=== PATIENT | female | born 1965 | race Caucasian/White ===

== ENCOUNTER 2018-03-23 18:18 | Observation (INO) | payer OTHER ==
[~2018-03-23 18:18] MED LIST: ISOVUE-370 76%-LOCM 1 ML ONE
[2018-03-23 18:54] VITALS: BMI 24.0
--- NOTE | 2018-03-23 19:14 | PDOC.FPRHP ---
- History of Present Illness Chief Complaint: suprapubic pain and dysuria History of Present Illness: Patient is a 52YOF w/ a PMH significant for recurrent UTI and a h/o kidney stones and pyelonephritis previously who was admitted to the hospital directly from clinic today after presenting there with a CC of persistent low grade fevers, back and suprapubic pain, dysuria, urgency, and nausea for the last 4 weeks. The patient stated that she was seen in [place], [place] urgent care the first of February and prescribed antibiotics which she took for 10 days and finished but says it provided her with one day of relief. She describes the pain as constant aching pain but worse with urination and becomes more sharp in nature in her lower abdomen. It will last up to 2 minutes after she finished urinating. She also endorses some achy bilateral low back pain that was worse on her left side yesterday but worse on her right today. Has been running a low grade fever around 100.0F as well as nausea. Endorses dark urine but no rene blood or odor to her urine. Does endorse urinary urgency and frequency as well. Has tried drinking a lot of water and taken tylenol and azos for symptoms with little relief. ED Course: Direct admit from clinic. - Allergies/Adverse Reactions Allergies Allergy/AdvReac Type Severity Reaction Status Date / Time No Known Allergies Allergy Verified 03/23/18 20:02 - Home Medications Medication Instructions Recorded Confirmed Type Lamotrigine [lamoTRIgine] 100 mg PO DAILY 03/23/18 03/23/18 History Omeprazole 40 mg PO DAILY 03/23/18 03/23/18 History Ondansetron HCl [Zofran] 4 mg PO Q6HR PRN 03/23/18 03/23/18 History Promethazine [Phenergan] 25 mg PO Q6HR PRN 03/23/18 03/23/18 History QUEtiapine Fumarate [SEROquel] 600 mg PO HS 03/23/18 03/23/18 History buPROPion HCl [buPROPion HCl ER] 200 mg PO BID 03/23/18 03/23/18 History hydrOXYzine HCl [Hydroxyzine HCl] 50 mg PO TID 03/23/18 03/23/18 History traZODone HCl [Trazodone HCl] 100 mg PO HS 03/23/18 03/23/18 History - History PMHx: GERD, Bipolar type II, h/o chronic pancreatitis & kidney stones, h/o recurrent UTI (endorses at least 4 this year alone) & pyelonephritis PSHx: hysterectomy & x 3 FHx: Father - HTN & CAD @ <55, from massive [place] Mother - DMII Brother - T-cell lymphoma Social: and lives alone in [place]. Former drug use and tobacco use. Smoked 1ppd for at least 10 years but quit 10 years ago. Former cocaine use but also quit 10 years ago. No EtOH use. - Review of Systems General: reports: fever/chills, weight/appetite/sleep changes, fatigue Eyes: denies: eye pain, vision changes ENT: reports: rhinorrhea, other (sore throat) Respiratory: reports: cough. denies: shortness of breath Cardiovascular: denies: chest pain, edema Gastrointestinal: reports: nausea. denies: vomiting, diarrhea, constipation Genitourinary: reports: dysuria, other (no hematuria but + for urgency and frequency). denies: incontinence Skin: denies: rashes, itching Musculoskeletal: reports: pain, tenderness Neurological: denies: numbness, syncope, weakness Psychological: reports: anxiety, depression - Vital signs BP: 129/70 HR: 91 RR: 20 Tmax: 98.6F Pox: 95% on RA Wt: 53.977 kg - Physical Exam Constitutional: NAD, awake, alert and oriented, well developed HEENT: normocephalic and atraumatic, PERRLA, conjunctiva clear, grossly normal vision, grossly normal hearing, MMM, oropharynx clear Neck: supple, FROM Heart: RRR, normal S1/S2, pulses present, no edema Lungs: CTAB, no respiratory distress, good air movement, no rales/rhonchi, no wheezing Abdomen: soft, bowel sounds present, other (TTP over suprapubic area) Musculoskeletal: normal structure, ROM grossly normal, other (moderate CVA tenderness bilaterally) Neurological: no focal deficit -Neurological: symmetric facial movements Skin: no rash/lesions, good turgor Heme/Lymphatic: no unusual bruising or bleeding, no purpura Psychiatric: normal mood and affect, good judgment and insight, intact recent and remote memory FMR H&P: Results - Labs Result Diagrams: 03/23/18 20:34 03/23/18 20:34 Lab results: UA in clinic: dark orange and cloudy 2+ leukocytes + nitrite 1+ protein hemolyzed trace blood 1+ glucose FMR H&P: A/P - Problem List (1) UTI (urinary tract infection) Current Visit: Yes Status: Suspected Priority: High Qualifiers: Urinary tract infection type: acute pyelonephritis Qualified Code(s): N10 - Acute pyelonephritis (2) Bipolar II disorder Current Visit: Yes Status: Chronic Code(s): F31.81 - BIPOLAR II DISORDER (3) HLD (hyperlipidemia) Current Visit: Yes Status: Chronic Code(s): E78.5 - HYPERLIPIDEMIA, UNSPECIFIED (4) History of pyelonephritis Current Visit: Yes Status: Chronic Code(s): Z87.448 - PERSONAL HISTORY OF OTHER DISEASES OF URINARY SYSTEM (5) History of kidney stones Current Visit: Yes Status: Chronic Code(s): Z87.442 - PERSONAL HISTORY OF URINARY CALCULI (6) History of recurrent UTI (urinary tract infection) Current Visit: Yes Status: Chronic Code(s): Z87.440 - PERSONAL HISTORY OF URINARY (TRACT) INFECTIONS (7) History of chronic pancreatitis Current Visit: Yes Status: Chronic Code(s): Z87.19 - PERSONAL HISTORY OF OTHER DISEASES OF THE DIGESTIVE SYSTEM (8) GERD (gastroesophageal reflux disease) Current Visit: Yes Status: Chronic Code(s): K21.9 - GASTRO-ESOPHAGEAL REFLUX DISEASE WITHOUT ESOPHAGITIS - Plan 52YOF w/ a PMH significant for a h/o recurrent UTIs, kidney stones, and pyelonephritis who was admitted directly from clinic after failing outpatient treatment for a presumed UTI. Dysuria and suprapubic tenderness: - Could be 2/2 a recurrent UTI vs. pyelonephritis vs. a kidney stone. - Will get a urine culture as UA in clinic was suspicious for a UTI w/ nitrite, leuk esterase, and trace blood. - CBC WNLs w/ a WBC of 6.6 and CMP also WNLs. - Will start on 1g of IV rocephin Q24H and get an abd/pelvic CT w/ & w/o contrast to assess for a possible abscess, pyelo, or stone as a potential source of her pain. - Will start on IVFs w/ LR @ 125mL/hr & get strict Is&Os. - Will order PRN tylenol for pain. - Will get a repeat BMP in the AM. HLD: - Aware, will resume home meds. Bipolar disorder type II: - Aware, will resume home meds. GERD: - Aware, will resume home meds. h/o recurrent UTI: - Aware, see above for dysuria. h/o kidney stones: - Aware. h/o chronic pancreatitis: - Aware, CMP WNLs & no abdominal pain on exam other than suprapubic TTP. - Pain not exacerbated with eating but with urination. FMR H&P: Upper Level - Pertinent history 52 yo F with PMHx recurrent UTI presents as a direct admission from clinic for UTI that has failed outpatient therapy. She reports she has had 4 UTI this year , the most recent which was diagnosed at the start of the month. She completed course of abx and reports 1 day of relief before symptoms started up again. Endorses dysuria, hesitancy and now suprapubic, low back and R flank pain. She also endorses h/o nephrolithiasis "years ago" and cannot recall what side it was on or when the last episode was. She endorses "low grade" fevers at home and nausea. - Pertinent findings VSS Gen: awake, alert, oriented HEENT: atraumatic, normocephalic CV: RRR, no murmur noted RESP: CTAB ABD: soft, TTP in suprapubic region BACK: mid-low back and R flank TTP EXT: no edema, pulses 1+ throughout - Plan Date/Time: 03/23/181909 52 yo F with pyelonephritis 1. Pyelonephritis: R flank pain in setting of UTI and sx persistent despite OP therapy. Will repeat UCx and order CT WWO contrast to evaluate for stone and renal abscess. Rocephin and IV fluids. Tylenol PRN pain. Monitor renal function. 2. Bipolar disorder: home meds 3. Chronic pancreatitis: "Cleared" by GI approx 1 year ago. No symptoms at this time. 4. GERD: EGD last year showed mild gastritis. H. pylori negative. Continue PPI 5. Subclinical hypothyroidism: Not on meds. Being followed by PCP, due for lab work. 6. HLD: Home meds 7. H/o nepholithiasis: CT stone protocol as above 8. Normocytic anemia: H/o FOBT positive. Colonoscopy last year incomplete 2/2 fecoliths. Needs ongoing f/u outpatient. I, Jessica Dueñas MD, PGY-3, have evaluated this patient and agree with findings/ plan as outlined by help desk internship resident. Pertinent changes/additions are listed here. Attending Addendum - Attending Addendum Date/Time: 03/24/18 6983 I personally evaluated the patient and discussed the management with Dr. Dueñas and Hair. I agree with and repeated the History, Examination, Assessment and Plan documented above with any addition or exceptions noted below. Need to review records and r/o other secondary causes.
[2018-03-23 20:55] LABS: #Basophils 0.1 thou/uL (0.0-0.2); #Eosinphils 0.2 thou/uL (0.0-0.7); #Lymphocytes 1.7 thou/uL (1.20-3.40); #Monocytes 0.7 thou/uL (0.11-0.59); %Basophils 0.8 % (0.0-1.0); %Eosinophils 2.8 % (0.0-10.0); %Lymphocytes 25.6 % (21.0-51.0); %Monocytes 10.4 % (0.0-10.0); %Neutrophils 60.4 % (42.0-75.0); Hemoglobin 10.5 g/dL (12.0-16.0); Mean Corpuscular HGB CONC 33.1 g/dL (32.0-36.0); Mean Corpuscular Hemoglobin 30.8 pg (27.0-31.0); Mean Corpuscular Volume 93.1 fL (78.0-98.0); Mean Platelet Volume 6.7 fL (7.4-10.4); Platelet Count 367 thou/uL (130-400); RBC Distribution Width 12.3 % (11.5-14.5); Red Blood Cell (RBC) Count 3.41 mill/uL (4.20-5.40); White Blood Cell (WBC) Count 6.6 thou/uL (4.8-10.8)
[2018-03-23] MEDS ORDERED: Ondansetron PF 4 MG/2 ML Vial SLOW IVP PRN (20:57)
[2018-03-23 21:14] LABS: ALT (SGPT) 7 U/L (8-55); AST (SGOT) 16 U/L (5-34); Albumin 3.7 g/dL (3.5-5.0); Alkaline Phosphatase 129 U/L (40-150); Anion Gap 13 mmol/L (10-20); BUN (Urea Nitrogen) 12 mg/dL (7.0-18.7); Bilirubin, Total 0.6 mg/dL (0.2-1.2); Calc. Creatinine Clearance 61 mL/min (70-130); Calcium 9.2 mg/dL (7.8-10.44); Carbon Dioxide 24 mmol/L (22-29); Chloride 105 mmol/L (98-107); Estimated GFR-MDRD 63; Globulin 3.1 g/dL (2.4-3.5); Glucose 86 mg/dL (70-105); Potassium 4.2 mmol/L (3.5-5.1); Protein, Total 6.8 g/dL (6.0-8.3); Sodium 138 mmol/L (136-145)
[2018-03-23] MEDS ORDERED: Promethazine 25 MG TAB PO PRN (22:21)
[2018-03-23] MEDS ORDERED: Ondansetron ODT 4 MG TAB PO PRN (22:21)
[2018-03-23] MEDS: cefTRIAXone\\ROCEPHIN 1 GM in Sodium Chloride 0.9% 100 ML IVPB SCH (22:24)
[2018-03-23] MEDS ORDERED: traZODone HCl 50 MG TAB PO SCH (23:30)
[2018-03-23] MEDS ORDERED: hydrOXYzine 25 MG TAB PO SCH (23:30)
[2018-03-23] MEDS ORDERED: Bupropion 100 MG SR TAB PO SCH (23:30)
[2018-03-23] MEDS: Lactated Ringer's 1,000 ML IV SCH (23:36)
[2018-03-23 23:41] LABS: BHCG - Serum Negative (NEGATIVE); Pregs Control Background? CLEAR/WHITE (CLR/WHITE); Pregs Control Bar Appear? YES (CONTROL BAR)
[2018-03-24] MEDS ORDERED: Benzonatate 100 MG CAP PO PRN (03:17)
[2018-03-24] MEDS: hydrOXYzine 25 MG TAB PO SCH ×3 (08:28→20:10)
[2018-03-24] MEDS: lamoTRIgine 100 MG TAB PO SCH (08:29)
[2018-03-24] MEDS: Bupropion 100 MG SR TAB PO SCH ×2 (08:29→20:10)
--- NOTE | 2018-03-24 08:45 | CT ---
PRELIMINARY REPORT/[facility]/EMERGENTY AFTER-HOURS PROCEDURE CT Abdomen and Pelvis Without and With Intravenous Contrast EXAM DATE/TIME: 03/24/2018 12:08 AM CLINICAL HISTORY: 52 years old, female; Abdominal tenderness and bloating; Pt HX: Suspected pyelonephritis vs renal Sto ne TECHNIQUE: Axial computed tomography images of the abdomen and pelvis without and with intravenous contrast. All CT scans at this facility use at least one of these dose optimization techniques: automated expos ure control; mA and/or kV adjustment per patient size (includes targeted exams where dose is matched to clinical indication); or iterative reconstruction. Coronal reformatted images were created and rev iewed. COMPARISON: No relevant prior studies available. FINDINGS: Lower thorax: Trace pericardial fluid. ABDOMEN: Liver: 12 x 9 mm cyst within the superior liver. Gallbladder and bile ducts: Contracted gallbladder. No calcified gallstones. Pancreas: Normal. No ductal dilation. Spleen: Normal. No splenomegaly. Adrenals: Normal. No mass. Kidneys and ureters: No calcified renal or ureteral stone. No hydronephrosis. On initial contrasted i mages, bilateral mild ureteral wall thickening which may reflect associated ureteritis. Stomach and bowel: At least a moderate amount of stool within the colon. Appendix: Normal appendix. PELVIS: Bladder: Mild diffuse wall thickening of the urinary bladder - possible cystitis. Reproductive: Status post hysterectomy. ABDOMEN and PELVIS: Intraperitoneal space: Normal. No free air. No significant fluid collection. Bones/joints: No acute fracture. No dislocation. Soft tissues: Small fat-containing umbilical hernia. Vasculature: Normal. No abdominal aortic aneurysm. Lymph nodes: Normal. No enlarged lymph nodes. IMPRESSION: 1. No calcified renal or ureteral stone. No hydronephrosis. 2. Mild diffuse wall thickening of the urinary bladder - possible cystitis. In addition, on the initi al contrasted images, bilateral mild ureteral wall thickening which may reflect associated ureteritis . 3. At least a moderate amount of stool within the colon. Thank you for allowing us to participate in the care of your patient. Dictated and Authenticated by: Ulysses Davison MD 03/24/2018 12:48 AM Central Time ([place] & [place]) FINAL REPORT CT ABDOMEN AND PELVIS WITH AND WITHOUT IV CONTRAST: Date: 03/23/18 FINDINGS/IMPRESSION: I agree with the preliminary report given by Gege. POS: MARIA ANTONIA
[2018-03-24] MEDS ORDERED: Non-Formulary Item 1 EACH (Omeprazole [Omeprazole] 40 MG) PO SCH (09:00)
[2018-03-24] MEDS: Lactated Ringer's 1,000 ML IV SCH ×3 (10:51→20:05)
--- NOTE | 2018-03-24 11:12 | PDOC.FM ---
- Subjective Subjective: Patient states that her pain is the same this AM. No improvement with antibiotics and fluids. She states the pain is mostly located in right flank and suprapubic region. She denies chills, chest pain, shortness of breath. No significant overnight events. - Objective MAR Reviewed: Yes Vital Signs & Weight: Vital Signs (12 hours) Temp Pulse Resp BP Pulse Ox 03/24/18 08:06 98.7 F 91 20 113/64 92 L 03/24/18 05:06 98.4 F 85 14 114/60 93 L 03/24/18 00:00 98.2 F 92 16 110/66 92 L Weight Weight 53.977 kg I&O: 03/23/18 03/24/18 03/25/18 06:59 06:59 06:59 Intake Total 1342 Balance 1342 Result Diagrams: 03/23/18 20:34 03/23/18 20:34 EKG Reviewed by me: No Radiology Reviewed by me: Yes <Kika Ashby - Last Filed: 03/24/18 11:10> - Objective Vital Signs & Weight: Vital Signs (12 hours) Temp Pulse Resp BP Pulse Ox 03/24/18 08:06 98.7 F 91 20 113/64 92 L 03/24/18 05:06 98.4 F 85 14 114/60 93 L 03/24/18 00:00 98.2 F 92 16 110/66 92 L Weight Weight 53.977 kg I&O: 03/23/18 03/24/18 03/25/18 06:59 06:59 06:59 Intake Total 1342 Balance 1342 Result Diagrams: 03/23/18 20:34 03/23/18 20:34 <Luke Jefferson - Last Filed: 03/24/18 11:21> Phys Exam - Physical Examination Constitutional: NAD HEENT: moist MMs Neck: supple Respiratory: no wheezing, clear to auscultation bilateral Cardiovascular: RRR, no significant murmur Gastrointestinal: soft, no distention, positive bowel sounds mildly tender to palpation in suprapubic region Musculoskeletal: no edema, pulses present Neurological: non-focal Psychiatric: A&O x 3 Skin: no rash, cap refill <2 seconds <Kika Ashby - Last Filed: 03/24/18 11:10> Dx/Plan (1) UTI (urinary tract infection) Status: Suspected Qualifiers: Urinary tract infection type: acute pyelonephritis Qualified Code(s): N10 - Acute pyelonephritis (2) Bipolar II disorder Code(s): F31.81 - BIPOLAR II DISORDER Status: Chronic (3) GERD (gastroesophageal reflux disease) Code(s): K21.9 - GASTRO-ESOPHAGEAL REFLUX DISEASE WITHOUT ESOPHAGITIS Status: Chronic (4) HLD (hyperlipidemia) Code(s): E78.5 - HYPERLIPIDEMIA, UNSPECIFIED Status: Chronic (5) History of chronic pancreatitis Code(s): Z87.19 - PERSONAL HISTORY OF OTHER DISEASES OF THE DIGESTIVE SYSTEM Status: Chronic (6) History of kidney stones Code(s): Z87.442 - PERSONAL HISTORY OF URINARY CALCULI Status: Chronic (7) History of pyelonephritis Code(s): Z87.448 - PERSONAL HISTORY OF OTHER DISEASES OF URINARY SYSTEM Status : Chronic (8) History of recurrent UTI (urinary tract infection) Code(s): Z87.440 - PERSONAL HISTORY OF URINARY (TRACT) INFECTIONS Status: Chronic - Plan Plan: 52YOF w/ a PMH significant for a h/o recurrent UTIs, kidney stones, and pyelonephritis who was admitted directly from clinic after failing outpatient treatment for a presumed UTI. UTI: - UA in clinic suspicious for UTI w/ nitrite, leuk esterase, and trace blood. - CBC WNLs w/ a WBC of 6.6 and CMP also WNLs. - Continue 1g of IV rocephin Q24H - Abdomen/pelvis CT with and without contrast showed chronic inflammation of bladders suspicious for cystitis as well as ureteritis. No evidence of stone, hydronephrosis or pyelnonephritis. - Continue IVF and strict I&O's. - Tylenol and AZO PRN - Due to chronicity of symptoms, patient may benefit from outpatient urology follow up - Urine cultures pending; possible that this may be a resistant organisms - Consider chronic interstitial nephritis as cause HLD: - Aware, will continue home meds. Bipolar disorder type II: - Aware, will continue home meds. GERD: - Aware, will continue home meds. h/o recurrent UTI: - Aware, see above h/o kidney stones: - Aware. h/o chronic pancreatitis: - Aware, CMP WNLs & no abdominal pain on exam other than suprapubic TTP. - Pain not exacerbated with eating Dispo: Stable. Continue IV fluids and antibiotics. Pending urine cultures. <Kika Ashby - Last Filed: 03/24/18 11:10> Attending Addendum - Attending Addendum Date/Time: 03/24/18 1121 I personally evaluated the patient and discussed the management with Dr. Ashby. I agree with the History, Examination, Assessment and Plan documented above with any addition or exceptions noted below. <Luke Jefferson - Last Filed: 03/24/18 11:21>
[2018-03-24] MEDS: Phenazopyridine HCl 97.5 MG TABLET PO SCH ×2 (13:48→17:49)
[2018-03-24] MEDS: Acetaminophen 325 MG TAB PO PRN (20:09)
[2018-03-24] MEDS: traZODone HCl 50 MG TAB PO SCH (20:11)
[2018-03-24] MEDS: cefTRIAXone\\ROCEPHIN 1 GM in Sodium Chloride 0.9% 100 ML IVPB SCH (21:00)
[2018-03-25] MEDS: Lactated Ringer's 1,000 ML IV SCH ×3 (04:38→22:51)
--- NOTE | 2018-03-25 05:47 | PDOC.FM ---
- Subjective Subjective: No significant overnight events. Patient states her abdominal pain is improved this AM. She is still having some discomfort, particularly when urinating, despite using Azo. She has a cough which has worsened. She denies any blood in her urine, flank pain, chest pain, N/V today. - Objective MAR Reviewed: Yes Vital Signs & Weight: Vital Signs (12 hours) Temp Pulse Resp BP Pulse Ox 03/25/18 04:40 97.8 F 81 16 108/56 L 93 L 03/24/18 19:39 99.5 F 92 12 124/69 93 L Weight Admit Weight 53.977 kg Weight 53.977 kg I&O: 03/23/18 03/24/18 03/25/18 06:59 06:59 06:59 Intake Total 1342 1882 Output Total 400 Balance 1342 1482 Result Diagrams: 03/23/18 20:34 03/23/18 20:34 EKG Reviewed by me: No Radiology Reviewed by me: Yes <Kika Ashby - Last Filed: 03/25/18 11:56> - Objective Vital Signs & Weight: Vital Signs (12 hours) Temp Pulse Resp BP Pulse Ox 03/25/18 11:39 99.1 F 93 16 128/74 94 L 03/25/18 07:57 98.3 F 94 16 132/66 93 L 03/25/18 04:40 97.8 F 81 16 108/56 L 93 L Weight Admit Weight 53.977 kg Weight 53.977 kg I&O: 03/24/18 03/25/18 03/26/18 06:59 06:59 06:59 Intake Total 1342 3498 Output Total 400 Balance 1342 3098 Result Diagrams: 03/23/18 20:34 03/23/18 20:34 <Luke Jefferson - Last Filed: 03/25/18 15:56> Phys Exam - Physical Examination Constitutional: NAD HEENT: moist MMs Neck: supple Respiratory: no wheezing, clear to auscultation bilateral Cardiovascular: RRR, no significant murmur Gastrointestinal: soft, non-tender, no distention, positive bowel sounds Musculoskeletal: no edema, pulses present Neurological: non-focal Psychiatric: A&O x 3 Skin: no rash, cap refill <2 seconds <Kika Ashby - Last Filed: 03/25/18 11:56> Dx/Plan (1) UTI (urinary tract infection) Status: Suspected Qualifiers: Urinary tract infection type: acute pyelonephritis Qualified Code(s): N10 - Acute pyelonephritis (2) Bipolar II disorder Code(s): F31.81 - BIPOLAR II DISORDER Status: Chronic (3) GERD (gastroesophageal reflux disease) Code(s): K21.9 - GASTRO-ESOPHAGEAL REFLUX DISEASE WITHOUT ESOPHAGITIS Status: Chronic (4) HLD (hyperlipidemia) Code(s): E78.5 - HYPERLIPIDEMIA, UNSPECIFIED Status: Chronic (5) History of chronic pancreatitis Code(s): Z87.19 - PERSONAL HISTORY OF OTHER DISEASES OF THE DIGESTIVE SYSTEM Status: Chronic (6) History of kidney stones Code(s): Z87.442 - PERSONAL HISTORY OF URINARY CALCULI Status: Chronic (7) History of pyelonephritis Code(s): Z87.448 - PERSONAL HISTORY OF OTHER DISEASES OF URINARY SYSTEM Status : Chronic (8) History of recurrent UTI (urinary tract infection) Code(s): Z87.440 - PERSONAL HISTORY OF URINARY (TRACT) INFECTIONS Status: Chronic - Plan Plan: 52YOF w/ a PMH significant for a h/o recurrent UTIs, kidney stones, and pyelonephritis who was admitted directly from clinic after failing outpatient treatment for a presumed UTI. UTI: - UA in clinic suspicious for UTI w/ nitrite, leuk esterase, and trace blood. - CBC WNLs w/ a WBC of 6.6 and CMP also WNLs. - Continue 1g of IV rocephin Q24H until urine culture results - Abdomen/pelvis CT with and without contrast showed chronic inflammation of bladders suspicious for cystitis as well as ureteritis. No evidence of stone, hydronephrosis or pyelnonephritis. - Continue IVF and strict I&O's until urine culture results. - Tylenol and AZO PRN - Due to chronicity of symptoms, patient may benefit from outpatient urology follow up. This was discussed today with the patient. - Urine cultures pending - Consider chronic interstitial nephritis as cause HLD: - Continue home meds Bipolar disorder type II: - Continue home meds GERD: - Continue home meds h/o recurrent UTI: - Aware, see above h/o kidney stones: - Aware. h/o chronic pancreatitis: - Aware, CMP WNLs & no abdominal pain on exam other than suprapubic TTP. Dispo: Stable. Continue IV fluids and antibiotics. Pending urine cultures. May discharge on oral antibiotics once urine cultures result. Will ensure patient has follow up with urology as outpatient. <Kika Ashby - Last Filed: 03/25/18 11:56> Attending Addendum - Attending Addendum Date/Time: 03/25/18 8128 I personally evaluated the patient and discussed the management with Dr. Ashby. I agree with the History, Examination, Assessment and Plan documented above with any addition or exceptions noted below. <Luke Jefferson - Last Filed: 03/25/18 15:56>
[2018-03-25] MEDS: lamoTRIgine 100 MG TAB PO SCH (09:48)
[2018-03-25] MEDS: hydrOXYzine 25 MG TAB PO SCH ×3 (09:49→20:37)
[2018-03-25] MEDS: Phenazopyridine HCl 97.5 MG TABLET PO SCH ×3 (11:41→17:23)
[2018-03-25] MEDS: Bupropion 100 MG SR TAB PO SCH ×2 (11:41→20:37)
[2018-03-25] MEDS: Acetaminophen 325 MG TAB PO PRN (20:03)
[2018-03-25] MEDS: traZODone HCl 50 MG TAB PO SCH (20:37)
[2018-03-25] MEDS: cefTRIAXone\\ROCEPHIN 1 GM in Sodium Chloride 0.9% 100 ML IVPB SCH (20:44)
--- NOTE | 2018-03-26 06:38 | PDOC.FM ---
- Subjective Subjective: Patient resting comfortably this morning. Complains of continued constant lower abdominal pain. Denies change of symptoms or new symptoms. No acute events over night. - Objective MAR Reviewed: Yes Vital Signs & Weight: Vital Signs (12 hours) Temp Pulse Resp BP Pulse Ox 03/26/18 04:40 99.1 F 88 18 117/71 92 L 03/25/18 20:00 100.3 F H 95 18 128/73 94 L Weight Admit Weight 53.977 kg Weight 56.155 kg I&O: 03/24/18 03/25/18 03/26/18 06:59 06:59 06:59 Intake Total 1342 3498 3890 Output Total 400 5450 Balance 1342 3098 -1560 Result Diagrams: 03/23/18 20:34 03/23/18 20:34 <Samson Omer - Last Filed: 03/26/18 06:37> - Objective Vital Signs & Weight: Vital Signs (12 hours) Temp Pulse Resp BP Pulse Ox 03/26/18 08:08 98.9 F 95 16 118/61 93 L 03/26/18 04:40 99.1 F 88 18 117/71 92 L Weight Admit Weight 53.977 kg Weight 56.155 kg I&O: 03/25/18 03/26/18 03/27/18 06:59 06:59 06:59 Intake Total 3498 3890 Output Total 400 5450 Balance 3098 -1560 Result Diagrams: 03/23/18 20:34 03/23/18 20:34 <Renuka Shrestha - Last Filed: 03/26/18 13:49> Phys Exam - Physical Examination Constitutional: NAD HEENT: moist MMs Neck: no JVD Respiratory: clear to auscultation bilateral Cardiovascular: RRR, no significant murmur Gastrointestinal: soft, no distention, positive bowel sounds Mild suprapubic and RLQ TTP Musculoskeletal: no edema Neurological: moves all 4 limbs Psychiatric: A&O x 3 Skin: no rash <Samson Omer - Last Filed: 03/26/18 06:37> Dx/Plan (1) UTI (urinary tract infection) Status: Acute Qualifiers: Urinary tract infection type: acute cystitis Hematuria presence: without hematuria Qualified Code(s): N30.00 - Acute cystitis without hematuria (2) Bipolar II disorder Code(s): F31.81 - BIPOLAR II DISORDER Status: Chronic (3) GERD (gastroesophageal reflux disease) Code(s): K21.9 - GASTRO-ESOPHAGEAL REFLUX DISEASE WITHOUT ESOPHAGITIS Status: Chronic (4) HLD (hyperlipidemia) Code(s): E78.5 - HYPERLIPIDEMIA, UNSPECIFIED Status: Chronic (5) History of recurrent UTI (urinary tract infection) Code(s): Z87.440 - PERSONAL HISTORY OF URINARY (TRACT) INFECTIONS Status: Chronic - Plan Plan: 1. UTI vs interstitial cystitis - Urine culture grew Staph Sapro 50-75k CFU. Current abx should cover as this will be her 4th day of Rocephin. However, given that there are less than 100k CFU and there has been minimal symptomatic improvement, this is possibly related to a more chronic inflammatory process. Will plan to have urology fu in outpatient setting. Will order urine gcc to rule out other possible infectious etiologies - Abdomen/pelvis CT with and without contrast showed chronic inflammation of bladders suspicious for cystitis as well as ureteritis. No evidence of stone, hydronephrosis or pyelnonephritis. - d/c fluids today - Tylenol and AZO PRN 2. HLD - Continue home meds 3. Bipolar disorder type II: - Continue home meds 4. GERD: - Continue home meds 5. h/o recurrent UTI: - As above Dispo: Stable. Plan to dc today. Will ensure patient has follow up with urology as outpatient. <Samson Omer - Last Filed: 03/26/18 06:37> Attending Addendum - Attending Addendum Date/Time: 03/26/18 2199 I personally evaluated the patient and discussed the management with Dr. Omer. I agree with the History, Examination, Assessment and Plan documented above with any addition or exceptions noted below. The patient's culture had less than 100,000 CFU of staph saprophyticus. She has received 4 days of iv rocephin. Pt will be disccharged and will need to f/ u with urology for likely cystoscopy. <Renuka Shrestha - Last Filed: 03/26/18 13:49>
[2018-03-26 08:16] VITALS: BP 118/61; TEMP 98.9
[2018-03-26] MEDS ORDERED: Fluticasone Propionate Nasal Spray 16 gm Bottle NASAL SCH (09:00)
[2018-03-26] MEDS: Bupropion 100 MG SR TAB PO SCH (09:33)
[2018-03-26] MEDS: lamoTRIgine 100 MG TAB PO SCH (09:33)
[2018-03-26] MEDS: Phenazopyridine HCl 97.5 MG TABLET PO SCH (09:34)
[2018-03-26] MEDS: hydrOXYzine 25 MG TAB PO SCH (09:34)
[2018-03-27 20:59] LABS: Chlamydia by PCR Not Detected (NotDetected); GC by PCR Not Detected (NotDetected)
--- NOTE | 2018-03-30 17:06 | DIS ---
DATE OF ADMISSION: 03/23/2018 DATE OF DISCHARGE: 03/26/2018 RESIDENT: Samson Omer DO ADMITTING ATTENDING: Luke Jefferson MD DISCHARGE ATTENDING: Luke Jefferson MD PROCEDURES: CT of abdomen and pelvis on 03/23/2018, findings; no renal or ureteral stone, no hydronephrosis, mild diffuse thickening of the urinary bladder, possible cystitis. ADMITTING DIAGNOSES: 1. UTI with outpatient treatment failure 2. Bipolar disorder. 3. Hyperlipidemia. 4. History of pyelonephritis. 5. History of kidney stones. 6. History of chronic pancreatitis. 7. Gastroesophageal reflux disease. DISCHARGE MEDICATIONS: 1. Trazodone 100 mg p.o. at bedtime. 2. Hydroxyzine 50 mg p.o. t.i.d. 3. Bupropion 200 mg p.o. b.i.d. 4. Seroquel 600 mg p.o. at bedtime. 5. Meclizine 25 mg p.o. q.6 p.r.n. nausea and vomiting. 6. Zofran 4 mg p.o. q.6 p.r.n. nausea and vomiting. 7. Omeprazole 40 mg p.o. daily. 8. Lamotrigine 100 mg p.o. daily. HOSPITAL COURSE: This is a 52-year-old female, who was admitted for failure outpatient treatment for cystitis/UTI. She has a history of recurrent UTI. In the outpatient setting, she had UA that was consistent with UTI with white cells and leukocyte esterase in urine. On admission, CBC and CMP were within normal limits. Vital signs were normal with exception of a mildly elevated temperature of 100.3 otherwise normal through the entirety of the admission. Cultures in the inpatient setting resulted in presumptive staph sapro, but only 50,000 to 75,000 colony-forming units. No susceptibilities were run due to the neely sensitive nature of the isolate. She was treated with IV Rocephin, however, she still is complaining of vague low abdominal pain with frequency and pain with urination. The cause of continued discomfort at this time is unclear due to what should be appropriate treatment. I had discussion with the patient, I would recommend that the patient followup in the outpatient setting for further work up by Urology and we expect that she would likely have cystoscopy in the outpatient setting. The patient was to return if she was to develop things such as fever or worsening abdominal pain. DISCHARGE INSTRUCTIONS: LOCATION: Home. DIET: Regular. FOLLOWUP: Follow up with PCP within 1 week and with Urology, Dr. Boykin ACTIVITY: Ad anita. Job ID: [id number]
== END 2018-03-26 12:05 | disposition home or self-care (01) ==
LOC: INTOOBSV 18:18 → 2SW 18:18
PROVIDERS: ADMIT Family Medicine; ATTEND Family Medicine
DX: N30.00 Acute cystitis without hematuria (principal); E78.5 Hyperlipidemia, unspecified; F31.81 Bipolar II disorder; E03.9 Hypothyroidism, unspecified; K21.9 Gastro-esophageal reflux disease without esophagitis; K86.1 Other chronic pancreatitis; Z87.891 Personal history of nicotine dependence; Z79.899 Other long term (current) drug therapy
CPT/HCPCS: 36415; 74178; 80053; 84703; 85025; 87086; 87491; 87591; 96361; 96374; 96376; G0378; J0696; J7050; J7120

== ENCOUNTER 2022-05-26 12:01 | Outpatient (CLI) | payer OTHER | END 2022-05-26 12:02 | disposition home or self-care (01) | LOC: ULT 12:01 | PROVIDERS: ATTEND Student in an Organized Health Care Education/Training Program | DX: I31.39 Other pericardial effusion (noninflammatory) (principal); I08.1 Rheumatic disorders of both mitral and tricuspid valves | CPT/HCPCS: 93306 ==

== ENCOUNTER 2022-07-30 15:11 | Outpatient (CLI) | payer OTHER | END 2022-07-30 15:12 | disposition home or self-care (01) | LOC: BICRAD 15:11 | PROVIDERS: ATTEND Student in an Organized Health Care Education/Training Program | DX: R07.9 Chest pain, unspecified (principal) | CPT/HCPCS: 71046 ==